=== PATIENT | female | born 1970 | race African-American/Black ===

== ENCOUNTER 2019-04-09 05:28 | Day surgery (SDC) ==
[2019-04-03 15:28] LABS: URINE SOURCE CLEAN CATCH
[2019-04-03 15:37] LABS: BASO# 0.02 X1000 (0.0-0.2); BASO% 0.3 % (0.0-0.8); EOS# 0.04 X1000 (0.0-0.7); EOS% 0.6 % (0.0-10.0); HEMATOCRIT 34.7 % (37.0-47.0); HEMOGLOBIN 10.7 g/dL (12.0-16.0); IMM GRAN# 0.02 X1000 (0.0-0.04); IMM GRAN% 0.3 % (0.0-0.5); MCH 23.3 PG (27-31); MCHC 30.8 g/dL (33-37); MCV 75.6 FL (81-99); MONO# 0.55 X1000 (0.11-0.59); MONO% 8.6 % (1.7-9.3); MPV 10.9 FL (7.4-10.4); NEUT% 62.2 % (42.2-75.2); PLT 245 X1000 (130-400); RBC 4.59 XMIL (4.2-5.4); RDW 12.7 % (11.5-14.5); WBC 6.43 X1000 (4.8-10.8)
[2019-04-03 15:38] LABS: BILIRUBIN URINE NEGATIVE (NEGATIVE); BLOOD URINE NEGATIVE (NEGATIVE); COLOR YELLOW; GLUCOSE URINE NEGATIVE (NEGATIVE); INR 0.99; KETONE URINE NEGATIVE (NEGATIVE); LEUKOCYTES URINE SMALL (NEGATIVE); NITRITE URINE NEGATIVE (NEGATIVE); PH URINE 6.5; PROTEIN URINE TRACE mg/dL (NEGATIVE); PROTIME 13.2 Seconds (11.0-16.0); SP GRAVITY URINE 1.036; TURBIDITY URINE CLEAR (CLEAR); UR EPITHELIAL CELLS <10 /HPF (<10); URINE BACTERIA 1+ /HPF; URINE RBC <10 /HPF (<10); URINE WBC <10 /HPF (<10); UROBILINOGEN URINE NORMAL (NORMAL)
[2019-04-03 15:39] LABS: PTT 29.8 Seconds (22.3-41.8)
[2019-04-03 15:49] LABS: HEMOGLOBIN A1C 5.4 % (4.8-6.0)
--- NOTE | 2019-04-03 15:54 | EKG Report ---
Test Performed on : 04/03/2019 3:02:07 PM Test Reason : PAT Blood Pressure : / mmHG Vent. Rate : 082 BPM Atrial Rate : 082 BPM P-R Int : 164 ms QRS Dur : 082 ms QT Int : 368 ms P-R-T Axes : 079 084 041 degrees QTc Int : 429 ms Normal sinus rhythm. Right atrial enlargement Nonspecific ST and T wave abnormality Abnormal ECG When compared with ECG of 07-JUN-2018 08:50, No significant change was found Confirmed by Savanna SAUCEDO, Chad ([id number]) on 04/04/2019 8:09:46 AM
[2019-04-03 17:08] LABS: AGAP 18; BUN 20 mg/dL (8-22); CALCIUM 9.3 mg/dL (8.8-10.2); CHLORIDE 100 mmol/L (98-107); COSMO 286; CREATININE 0.9 mg/dL (0.5-0.9); GLUCOSE 139 mg/dL (70-104); POTASSIUM 4.5 mmol/L (3.5-5.1); SODIUM 141 mmol/L (136-145); TCO2 23 mmol/L (25-35)
[2019-04-09] MEDS ORDERED: COLACE ONE (06:03)
[2019-04-09] MEDS ORDERED: KEFZOL 1 GM/D5W 2 GM/100 ML IVPB ONE (06:03)
[2019-04-09] MEDS ORDERED: PEPCID ONE (06:03)
[2019-04-09] MEDS ORDERED: LYRICA ONE (06:03)
[2019-04-09] MEDS ORDERED: LR 1,000 ML ONE (06:03)
[2019-04-09] MEDS ORDERED: CELEBREX ONE (06:03)
[2019-04-09] MEDS ORDERED: REGLAN ONE (06:03)
[2019-04-09] MEDS ORDERED: VANCOMYCIN ONE (06:20)
[2019-04-09] MEDS ORDERED: DURAMORPH ONE (06:20)
[2019-04-09] MEDS ORDERED: MARCAINE 0.25% PF ONE (06:20)
[2019-04-09] MEDS ORDERED: TORADOL ONE (06:20)
[2019-04-09] MEDS ORDERED: SODIUM CHLORIDE 0.9% ONE (06:21)
[2019-04-09] MEDS ORDERED: EXPAREL 1.3% ONE (06:21)
[2019-04-09] MEDS ORDERED: CYKLOKAPRON 1,000 MG/NS 2,000 MG/200 ML IVPB ONE (06:21)
[2019-04-09] MEDS ORDERED: NEOSPORIN G.U. IRRIGANT ONE (06:21)
[2019-04-09] MEDS ORDERED: XYLOCAINE-MPF 2% ONE (06:47)
[2019-04-09] MEDS ORDERED: DIPRIVAN 1% ONE (06:47)
[2019-04-09] MEDS ORDERED: FENTANYL ONE (07:21)
[2019-04-09] MEDS ORDERED: ZOFRAN ONE (07:46)
[2019-04-09] MEDS ORDERED: OFIRMEV 1000 MG/ISOTONIC SOLN 1,000 MG/100 ML BOTTLE ONE (07:46)
[2019-04-09] MEDS ORDERED: DECADRON ONE (07:46)
[2019-04-09] MEDS ORDERED: NS 1,000 ML ONE (09:33)
[2019-04-09 10:04] LABS: URINE SOURCE CATH
[2019-04-09] MEDS: DILAUDID ONE ×2 (10:12→10:19)
[2019-04-09 10:20] LABS: UR EPITHELIAL CELLS <10 /HPF (<10); URINE BACTERIA NEGATIVE /HPF; URINE RBC <10 /HPF (<10); URINE WBC <10 /HPF (<10)
[2019-04-09] MEDS ORDERED: OXY IR ONE (10:23)
[2019-04-09 11:01] LABS: BILIRUBIN URINE NEGATIVE (NEGATIVE); BLOOD URINE NEGATIVE (NEGATIVE); COLOR YELLOW; GLUCOSE URINE NEGATIVE (NEGATIVE); KETONE URINE NEGATIVE (NEGATIVE); LEUKOCYTES URINE NEGATIVE (NEGATIVE); NITRITE URINE NEGATIVE (NEGATIVE); PH URINE 5.5; PROTEIN URINE NEGATIVE (NEGATIVE); TURBIDITY URINE CLEAR (CLEAR); UROBILINOGEN URINE NORMAL (NORMAL)
--- NOTE | 2019-04-09 11:10 | OPERATIVE NOTE ---
PROCEDURE DATE: 04/09/2019 PREOPERATIVE DIAGNOSIS: Left knee degenerative joint disease. POSTOPERATIVE DIAGNOSIS: Left knee degenerative joint disease. PROCEDURE PERFORMED: Left total knee arthroplasty using a [employer] size 4 femoral component, size 4 tibial base plate, a 14 mm articular insert and a 35 mm patellar component. ANESTHESIA: Spinal. SURGEON: Winston Sarabia MD. DIRECTOR OF REIMBURSEMENT: LUZMARIA Hart, who was present throughout the case and whose assistance was critical for successful completion of case. BLOOD LOSS: Minimal TOURNIQUET TIME: Approximately an hour. DESCRIPTION OF PROCEDURE: The patient was brought to the operative suite and placed in supine position. After successful administration of general anesthesia, a well-padded tourniquet was placed on the left proximal thigh. Left lower extremity was prepped and draped in the usual sterile fashion. Leg was exsanguinated. Tourniquet insufflated to 300 torr. A longitudinal incision was made beginning at the superior pole of the patella and extended distally to tibial tuberosity. The medial arthrotomy was made with a medial capsule being elevated off the medial tibial plateau. The ACL, PCL, medial meniscus, and lateral meniscus were excised. A drill was entered in the distal femur. Intramedullary guide was placed. Distal cutting block was pinned in place and this cut made with an oscillating saw. The femur was sized to a size 4. A size 4 cutting block was pinned in place. Anterior cuts, chamfer cuts, and posterior condylar cuts were made with the oscillating saw. Marginal osteophytes removed with rongeur .a box cutting block was pinned in place. A box cut was made with a box osteotome and oscillating saw. Posterior condylar osteophytes removed with the curved osteotome and rongeur. Attention was directed to the tibia. A drill was inserted in the tibia. Intramedullary guide was placed in alignment, checked with a drop tricia referencing off the anterior cortex tibia, and taking 4 mm off the low side of the tibia, which in this case was medially. Tibial cutting block was pinned in place. The articular surface tibial plateau was removed with the oscillating saw. Marginal osteophytes removed with rongeur. Any meniscal fragments were removed. The flexion-extension gaps were checked and balanced, found to be tight medially. A medial release was performed to be balanced at 14 mm. The tibia was sized to size 4. A size 4 guide was used for the fin punch. The tibial trial, femoral trial, 14 mm articular insert were placed and taken through range of motion, found to have excellent alignment, balancing, range of motion. Attention was directed to patella 9 mm of the articular surface. Patella removed with oscillating saw. The patella sized to size 35. A size 35 guide was used to drill peg holes, lateral facet was chamfered 30 to 45 degrees. Patella trial was placed, taken through range of motion, found to have excellent patella tracking. All trials were then removed. Knee was copiously irrigated and dried, being certain all bone debris was removed. The tibial component, femoral component and patellar component were cemented in place with excess cement being removed with a Oakley. Once the cement had hardened, excess cement was again removed with an osteotome. Knee was again copiously irrigated and dried, being certain all bone and cement debris removed. The trial articular insert was removed. The knee was copiously infiltrated with Exparel including the posterior capsule, anterior capsule, medial and lateral collateral ligaments, anterior musculature, and subcutaneous tissue. The tourniquet was deflated. Hemostasis was obtained with electrocautery. Definitive 14 mm articular insert was locked into place. The knee was again copiously irrigated with normal saline containing irrigant and Vashe irrigation. The medial arthrotomy was then closed with 0 V-LOC. The skin edge approximated with 2-0 Vicryl, skin was closed with Prineo and a sterile dressing applied. The patient tolerated the procedure well without complication. At the end the procedure, all counts correct x2. The patient was transferred to the recovery room in stable condition. cc: Winston Sarabia MD
[2019-04-09] MEDS ORDERED: NS 1,000 ML IV SCH (11:15)
[2019-04-09] MEDS ORDERED: MORPHINE IV PRN ×3 (11:15)
[2019-04-09] MEDS ORDERED: MILK OF MAGNESIA PO PRN (11:15)
[2019-04-09] MEDS ORDERED: OXY IR PO PRN (11:15)
[2019-04-09] MEDS ORDERED: ZOFRAN ODT PO PRN (11:15)
[2019-04-09] MEDS: BENTYL PO SCH ×3 (13:56→21:05)
[2019-04-09] MEDS: ULTRAM PO SCH ×2 (13:56→21:05)
[2019-04-09] MEDS: ZOFRAN IV PRN (13:56)
[2019-04-09] MEDS: KEFZOL 2 GM/D5W 2 GM/50 ML IVPB IV SCH ×3 (13:56→23:33)
[2019-04-09] MEDS: TYLENOL PO SCH ×3 (13:56→21:04)
[2019-04-09] MEDS: OXY IR PO PRN (17:08)
[2019-04-09] MEDS ORDERED: FLU VACCINE IM ONE (17:24)
[2019-04-09] MEDS ORDERED: AMBIEN PO SCH (21:00)
[2019-04-09] MEDS ORDERED: CELEBREX PO SCH (21:00)
[2019-04-09] MEDS: COLACE PO SCH (21:04)
[2019-04-09] MEDS: LYRICA PO SCH (21:04)
[2019-04-09] MEDS: CELEBREX PO SCH (21:05)
[2019-04-09] MEDS: PERIDEX MT SCH (21:07)
[2019-04-10] MEDS: TYLENOL PO SCH ×2 (03:01→08:02)
[2019-04-10] MEDS: ULTRAM PO SCH ×2 (03:01→08:02)
[2019-04-10] MEDS: OXY IR PO PRN ×3 (04:31→12:01)
[2019-04-10 06:46] LABS: HEMATOCRIT 29.2 % (37.0-47.0)
[2019-04-10 07:11] LABS: AGAP 9; BUN 10 mg/dL (8-22); CALCIUM 8.7 mg/dL (8.8-10.2); CHLORIDE 101 mmol/L (98-107); COSMO 280; CREATININE 0.6 mg/dL (0.5-0.9); ESTIMATED GFR > 60; GLUCOSE 201 mg/dL (70-104); SODIUM 138 mmol/L (136-145); TCO2 28 mmol/L (25-35)
[2019-04-10] MEDS: LYRICA PO SCH (08:02)
[2019-04-10] MEDS: CELEBREX PO SCH (08:03)
[2019-04-10] MEDS: PERIDEX MT SCH (08:04)
[2019-04-10] MEDS: COLACE PO SCH (08:04)
[2019-04-10] MEDS: BENTYL PO SCH ×2 (08:04→12:01)
[2019-04-10] MEDS ORDERED: SALINE LOCK IV FLUID XX ONE (08:32)
[2019-04-10] MEDS ORDERED: ASPIRIN PO SCH (09:00)
[2019-04-10] MEDS ORDERED: PEPCID PO SCH (09:00)
[2019-04-10] MEDS ORDERED: DECADRON IV ONE (09:00)
[2019-04-10] MEDS ORDERED: ZOFRAN ODT PO PRN (10:20)
[2019-04-10] MEDS: ZOFRAN IV PRN (12:24)
[2019-04-10] MEDS ORDERED: PHENERGAN IV ONE (14:38)
[2019-04-10] MEDS: SODIUM CHLORIDE 0.9% INJ ONE (15:20)
[2019-04-10 15:43] VITALS: BP 138/72
--- NOTE | 2019-04-10 16:22 | DISCHARGE SUMMARY ---
ADMISSION DATE: 04/09/2019 DISCHARGE DATE: 04/10/2019 DISCHARGE DIAGNOSIS: Left knee degenerative joint disease status post left total knee arthroplasty. DISCHARGE MEDICATIONS: See discharge medication list. DISPOSITION: The patient is discharged home with home health and physical therapy and instructed to return for any signs or symptoms of infection or deep venous thrombosis. Instructed to return to see Dr. Sarabia next . HOSPITAL COURSE: On the day of admission, patient underwent a left total knee arthroplasty. Her postoperative course was unremarkable. At discharge she is afebrile. She is tolerating a regular diet. She is discharged home in stable condition with instructions to follow up as described above. cc: Winston Sarabia MD
== END 2019-04-10 17:22 | disposition home or self-care (01) ==
LOC: 4N 05:28 → OR 05:28
PROVIDERS: ATTEND Orthopaedic Surgery